=== PATIENT | male | born 1985 | race Caucasian/White ===

== ENCOUNTER 2020-05-08 14:45 | Emergency (ER) | payer OTHER ==
[~2020-05-08] VITALS: Ht 177.8 cm; Wt 72.6 kg
[2020-05-08 14:47] VITALS: BP 123/77; Ht 177.8 cm; Wt 72.6 kg
== END 2020-05-08 15:27 | disposition other institution (70) ==
LOC: ED 14:45
DX: Z02.89 Encounter for other administrative examinations (principal); F17.210 Nicotine dependence, cigarettes, uncomplicated; Z71.6 Tobacco abuse counseling
CPT/HCPCS: 99406